=== PATIENT | male | born 1990 | race Caucasian/White ===

== ENCOUNTER 2022-09-06 14:57 | Inpatient (IN) | payer OTHER ==
[2022-09-06 15:51] VITALS: BMI 24.1
[2022-09-06] MEDS ORDERED: MAG HYDROX/AL HYDROX/SIMETH 30 ML UNIT-DOSE CUP PO PRN (18:14)
[2022-09-06] MEDS ORDERED: IBUPROFEN 400 MG TABLET (FP) PO PRN (18:14)
[2022-09-06] MEDS ORDERED: DICYCLOMINE HCL 10 MG CAPSULE PO PRN (18:14)
[2022-09-06] MEDS ORDERED: NICOTINE POLACRILEX 4 MG GUM BUC PRN (18:14)
[2022-09-06] MEDS ORDERED: BENZOCAINE/MENTHOL (CHLORASEPTIC ) LOZENGE MM PRN (18:14)
[2022-09-06] MEDS ORDERED: NALOXONE HCL (KLOXXADO) 8 MG SPRAY NS PRN (18:14)
[2022-09-06] MEDS ORDERED: hydrOXYzine PAMOATE 25 MG CAPSULE (FP) PO PRN (18:14)
[2022-09-06] MEDS ORDERED: BISMUTH SUBSALICYLATE 524 MG/30 ML PO PRN (18:14)
[2022-09-06] MEDS ORDERED: ACETAMINOPHEN 325 MG TABLET (FP) PO PRN ×2 (18:14)
[2022-09-06] MEDS ORDERED: MAGNESIUM CITRATE 300 ML BOTTLE PO PRN (18:14)
[2022-09-06] MEDS ORDERED: MAGNESIUM HYDROX 2400MG/30ML ORAL SUSPENSION 30 ML CUP PO PRN (18:14)
[2022-09-06] MEDS ORDERED: IBUPROFEN 600 MG TABLET (FP) PO PRN (18:14)
[2022-09-06] MEDS ORDERED: LOPERAMIDE HCL 2 MG CAPSULE PO PRN (18:14)
[2022-09-06] MEDS ORDERED: NICOTINE 10 MG CARTRIDGE (INHALER) IH PRN (18:14)
[2022-09-06] MEDS ORDERED: ONDANSETRON *ODT* 4 MG TABLET SL PRN (18:14)
[2022-09-06 21:08] VITALS: RESP 18
[2022-09-06] MEDS ORDERED: MELATONIN 5 MG TABLETS PO SCH (22:00)
[2022-09-06] MEDS ORDERED: TRIAMCINOLONE ACET 0.025% CREAM 15 GM TUBE TP SCH (22:00)
[2022-09-06] MEDS ORDERED: THIAMINE HCL 100 MG TABLET (FP) PO SCH (22:00)
[2022-09-06] MEDS: METHOCARBAMOL 500 MG TABLET PO PRN (22:23)
[2022-09-06] MEDS ORDERED: hydrOXYzine PAMOATE 25 MG CAPSULE (FP) PO ONE (23:34)
[2022-09-07] MEDS ORDERED: hydrOXYzine PAMOATE 25 MG CAPSULE (FP) PO ONE (03:38)
[2022-09-07 06:06] VITALS: BP 145/87; PULSE 68; TEMP 97.6
[2022-09-07] MEDS: METHOCARBAMOL 500 MG TABLET PO PRN (07:08)
[2022-09-07] MEDS ORDERED: methaDONE HCL 40 MG DISPERSABLE TABLET PO SCH (07:30)
[2022-09-07] MEDS ORDERED: PRENATAL VITAMINS W/ FOLIC ACID TABLET (FP) PO SCH (10:00)
[2022-09-07 11:26] LABS: HEMOGLOBIN 14.5 GM/dL (11.7-16.9); MCH 28.5 pg (25.7-33.7); MCHC 32.3 g/dl (32.0-35.9); MEAN CELL VOLUME 88.3 fl (80-96); MEAN PLT VOLUME 8.5 fl (7.5-11.1); PLATELET COUNT 371 10^3/uL (134-434); WHITE BLOOD COUNT 7.1 K/mm3 (4.0-10.0)
[2022-09-07 11:27] LABS: ALBUMIN 4.3 g/dl (3.4-5.0); BLOOD UREA NITROGEN 10.4 mg/dL (7-18); CALCIUM 10.4 mg/dL (8.5-10.1)
[2022-09-07 11:30] LABS: CREATININE 0.9 mg/dL (0.55-1.3)
[2022-09-07 11:32] LABS: BILIRUBIN,TOTAL 0.6 mg/dL (0.2-1)
== END 2022-09-07 09:17 | disposition home or self-care (01) | DRG 773 ==
LOC: YASAS 14:57 → Y3N 19:12
PROVIDERS: ADMIT Allergy & Immunology; ATTEND Surgery
PROC: HZ2ZZZZ Detoxification Services for Substance Abuse Treatment (ICD-10-PCS; principal; 2022-09-06)
DX: F10.230 Alcohol dependence with withdrawal, uncomplicated (principal); F11.20 Opioid dependence, uncomplicated; F13.20 Sedative, hypnotic or anxiolytic dependence, uncomplicated; F12.20 Cannabis dependence, uncomplicated; F17.210 Nicotine dependence, cigarettes, uncomplicated; F31.9 Bipolar disorder, unspecified; Z21 Asymptomatic human immunodeficiency virus [HIV] infection status; Z28.310 Unvaccinated for COVID-19; Z28.9 Immunization not carried out for unspecified reason
CPT/HCPCS: 36415; 80053; 85027; 86780; C9803-CS; U0003; U0005